=== PATIENT | female | born 2000 | race Caucasian/White ===

== ENCOUNTER → 2020-01-12 | Outpatient (CLI) | payer OTHER ==
--- NOTE | 2020-01-12 15:53 | Diagnostic Imaging Report ---
INDICATION: Right ankle pain. TIME OF EXAM: 3:41 PM. TECHNIQUE: Three views of the right ankle were obtained. FINDINGS: The alignment is normal. The ankle mortise is well maintained. The talar dome is smooth. No fracture or dislocation is seen. There is some soft tissue prominence along the lateral right ankle. The patient reportedly has a ganglion cyst at this location. IMPRESSION: No acute bony abnormality is detected. Dictated by: Dictated on workstation # [id number]
== END ==
LOC: RAD 15:11
PROVIDERS: ATTEND Internal Medicine
DX: M25.571 Pain in right ankle and joints of right foot (principal)
CPT/HCPCS: 73610

== ENCOUNTER → 2021-02-13 | Outpatient (CLI) | payer OTHER | LOC: CARD 15:00 | PROVIDERS: ATTEND Internal Medicine | DX: R01.1 Cardiac murmur, unspecified (principal) | CPT/HCPCS: 93306 ==